=== PATIENT | female | born 1945 ===

== ENCOUNTER → 2023-04-30 09:24 | Outpatient (BNVA) | payer MEDICARE, OTHER, SELFPAY | PROVIDERS: Family Provider Physician Assistant Medical; Visit Provider Nurse Practitioner Family | DX: L57.0 Actinic keratosis (principal); L21.8 Other seborrheic dermatitis; L57.8 Other skin changes due to chronic exposure to nonionizing radiation; L81.4 Other melanin hyperpigmentation; L85.3 Xerosis cutis; D22.4 Melanocytic nevi of scalp and neck | CPT/HCPCS: 17000; 99204 ==

== ENCOUNTER → 2023-07-08 14:03 | Outpatient (BNVA) | payer MEDICARE, OTHER, SELFPAY | PROVIDERS: Family Provider Physician Assistant Medical; Visit Provider Nurse Practitioner Family | DX: D48.5 Neoplasm of uncertain behavior of skin (principal); L57.8 Other skin changes due to chronic exposure to nonionizing radiation; L81.4 Other melanin hyperpigmentation; D22.4 Melanocytic nevi of scalp and neck; I87.2 Venous insufficiency (chronic) (peripheral) | CPT/HCPCS: 11102; 99214 ==

== ENCOUNTER → 2023-11-02 07:45 | Outpatient (BNVA) | payer MEDICARE, OTHER, SELFPAY | PROVIDERS: Family Provider Physician Assistant Medical; Visit Provider Nurse Practitioner Family | DX: S50.862A Insect bite (nonvenomous) of left forearm, initial encounter (principal); S30.816A Abrasion of unspecified external genital organs, female, initial encounter; X58.XXXA Exposure to other specified factors, initial encounter; L57.0 Actinic keratosis; I87.2 Venous insufficiency (chronic) (peripheral); L57.8 Other skin changes due to chronic exposure to nonionizing radiation; L81.4 Other melanin hyperpigmentation; D22.4 Melanocytic nevi of scalp and neck | CPT/HCPCS: 17000; 99214 ==